=== PATIENT | female | born 1955 | race Caucasian/White ===

== ENCOUNTER 2018-10-15 14:17 | Emergency (ER) | payer OTHER ==
[2018-10-15 15:15] VITALS: PULSE 90; RESP 16; TEMP 98; O2SAT 98
--- NOTE | 2018-10-15 16:11 | ED PDOC ---
Upper Extremity Pain/Injury Time Seen by Provider: 10/15/18 15:20 Chief Complaint (Nursing): Upper Extremity Problem/Injury Chief Complaint (Provider): fall/wrist pain History Per: Patient (63 y/o female here for evaluation of trip and fall on hand 3am today at work. Patient states she notes moderate worsening of pain. Took alleve at 10am) Past Medical History Reviewed: Historical Data, Nursing Documentation, Vital Signs Vital Signs: Last Vital Signs Temp 98.0 F 10/15/18 15:10 Pulse 90 10/15/18 15:10 Resp 16 10/15/18 15:10 BP 162/90 H 10/15/18 15:10 Pulse Ox 98 10/15/18 15:10 - Family History Family History: States: No Known Family Hx - Home Medications Home Medications: Ambulatory Orders Medication Instructions Recorded Naproxen 375 mg PO Q8 PRN #21 tablet 10/15/18 - Allergies Allergies/Adverse Reactions: Allergies Allergy/AdvReac Type Severity Reaction Status Date / Time Penicillins Allergy RASH Verified 10/15/18 15:12 Review of Systems ROS Statement: Except As Marked, All Systems Reviewed And Found Negative Musculoskeletal: Positive for: Other (wrist pain) Physical Exam - Reviewed Nursing Documentation Reviewed: Yes Vital Signs Reviewed: Yes - Physical Exam Appears: Positive for: Well, Non-toxic, No Acute Distress Head Exam: Positive for: ATRAUMATIC, NORMAL INSPECTION, NORMOCEPHALIC Skin: Positive for: Normal Color, Warm, DRY Eye Exam: Positive for: EOMI, Normal appearance, PERRL ENT: Positive for: Normal ENT Inspection Neck: Positive for: Normal, Painless ROM Cardiovascular/Chest: Positive for: Regular Rate, Rhythm Respiratory: Positive for: CNT, Normal Breath Sounds Gastrointestinal/Abdominal: Positive for: Normal Exam, Soft Back: Positive for: Normal Inspection Extremity: Positive for: Swelling (moderate swelling dorsum of wrist right. (+) snuffbox tenderness). Negative for: Normal ROM Neurological/Psych: Positive for: Awake, Alert, Normal Tone - ECG O2 Sat by Pulse Oximetry: 98 - Progress ED Course And Treament: Placed in thumb spica splint. xry of wrist: neg for fx xry of hand: neg for fx Disposition - Clinical Impression Clinical Impression: Wrist injury - Patient ED Disposition Is Patient to be Admitted: No - Disposition Referrals: Lenka Vivar MD [Staff Provider] - Disposition: Routine/Home Disposition Time: 16:30 Condition: FAIR Prescriptions: Naproxen 375 mg PO Q8 PRN #21 tablet PRN Reason: Pain, Moderate (4-7) Instructions: Wrist Sprain (DC) Forms: [facility] ED School/Work Excuse
--- NOTE | 2018-10-15 16:30 | RAD ---
Date of service: 10/15/2018 PROCEDURE: Right Wrist Radiographs. HISTORY: wrist injury COMPARISON: Comparison made with concurrent radiographs of the right hand FINDINGS: BONES: No evidence of acute displaced fracture nor dislocation. Note that the ulna styloid is somewhat diminutive in size; findings may represent an anatomic variation however possibility of sequela of old trauma not excluded. JOINTS: No significant degenerative osteoarthritis SOFT TISSUES: Normal. OTHER FINDINGS: None. IMPRESSION: No evidence of acute displaced fracture nor dislocation.
--- NOTE | 2018-10-15 16:31 | RAD ---
PROCEDURE: Right Hand Radiographs. HISTORY: hand injury COMPARISON: Correlation made with concurrent radiographs of the right wrist TECHNIQUE: 3 views obtained. FINDINGS: BONES: No evidence of acute displaced fracture nor dislocation. Again noted is diminutive old styloid; findings may represent an anatomic variation however possibility of sequela of old trauma not excluded. JOINTS: No significant osteoarthritic changes. SOFT TISSUES: Normal. OTHER FINDINGS: None. IMPRESSION: No evidence of acute displaced fracture nor dislocation
[2018-10-15 16:41] VITALS: BP 151/87
== END 2018-10-15 16:40 | disposition home or self-care (01) ==
LOC: H.ER 14:17
DX: S69.91XA Unspecified injury of right wrist, hand and finger(s), initial encounter (principal); W19.XXXA Unspecified fall, initial encounter; Z88.0 Allergy status to penicillin